=== PATIENT | female | born 1985 | race African-American/Black ===

== ENCOUNTER 2016-08-05 18:16 | Emergency (ER) | payer MEDICAID ==
[~2016-08-05] VITALS: Ht 149.9 cm; Wt 41.3 kg
[2016-08-05 18:27] VITALS: BP 126/87
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
[2016-08-05] MEDS ORDERED: IBUPROFEN600 MG ORAL (18:52)
[2016-08-05] MEDS ORDERED: CYCLOBENZAPRINE10 MG ORAL (18:52)
[2016-08-05 19:21] VITALS: BP 126/87
== END 2016-08-05 19:23 | disposition home or self-care (01) ==
LOC: EMR 18:50
DX: M62.830 Muscle spasm of back (principal)
CPT/HCPCS: 99284